=== PATIENT | female | born 1965 | race Caucasian/White ===

== ENCOUNTER 2020-08-10 07:29 | Day surgery (SDC) | payer OTHER ==
[~2020-08-10] VITALS: Ht 167.6 cm; Wt 68.0 kg
[~2020-08-10 07:29] MED LIST: ALIVE WOMENS ENERGY PO; AMOXICILLIN500 MG OR; FLEXERIL OR; LORTAB 5 OR; LORTAB5 OR; MEMORY SUPPLEMENT PO; NO CURRENT MEDS; NO HOME MEDS; PERCOCET 5/321 COMBO PO; PERCOCET 5/325M1 TAB OR; PERCOCET 5/325M1 TAB PO; PRILOSEC20 MG PO
[2020-08-10 09:10] VITALS: BP 136/76
--- NOTE | 2020-08-10 15:35 | NUR ---
PER PHYSICIAN, ADVISED PATIENT OF COLONOSCOPY FINDINGS AND RECOMMENDATIONS PER WRITTEN REPORT, PATIENT VERBALIZED UNDERSTANDING, STATED PROCEDURE WENT WELL, VOICED NO CONCERNS AT TIME OF CALL. REPORT AND NOTE FORWARDED TO PRIMARY CARE FOR CONTINUITY OF CARE AND FOLLOW UP.
== END 2020-08-10 10:02 | disposition home or self-care (01) | DRG 951 ==
LOC: ENDO 07:29 → ORM 08:45 → ENDO 09:20 → ORM 10:20 → ENDO 10:20
PROVIDERS: ATTEND Surgery
PROC: 0DJD8ZZ Inspection of Lower Intestinal Tract, Via Natural or Artificial Opening Endoscopic (ICD-10-PCS; principal; 2020-08-10)
DX: Z12.11 Encounter for screening for malignant neoplasm of colon (principal); K63.9 Disease of intestine, unspecified

== ENCOUNTER 2021-07-26 11:26 | Emergency (ER) | payer OTHER ==
[~2021-07-26] VITALS: Ht 167.6 cm; Wt 70.0 kg
[~2021-07-26 11:26] MED LIST changes: +GABAPENTIN300 M2 PO; +OMEPRAZOLE DR40 MG PO
[2021-07-26 12:48] LABS: IMMATURE GRANULOCYTES 0.2 % (0.0-5.0); MEAN CELL VOLUME 87.6 fL CALC (80.0-100.0); MEAN CORPUSCULAR HGB 29.5 pG CALC (26.0-32.0); MEAN CORPUSCULAR HGB CONC 33.6 g/dL CAL (32.0-36.0); NEUT# 7.12 thou/uL (2.00-7.15); RED BLOOD COUNT 3.87 mill/uL (4.20-5.60); RED CELL DISTRI WIDTH 13.9 % (11.5-15.5)
[2021-07-26 12:54] LABS: HEMATOCRIT 33.9 % (37.0-47.0); HEMOGLOBIN 11.4 g/dl (12.0-16.0)
[2021-07-26 13:04] LABS: ALBUMIN 4.4 g/dL (3.2-5.0); ALKALINE PHOSPHATASE 105 u/l (38-126); ANION GAP 13 (6-22 (CALC)); BUN 7 mg/dL (7-17); BUN/CREATININE RATIO 12 (12-20 (CALC)); C-REACTIVE PROTEIN 4.8 mg/dL (0-0.9); CARBON DIOXIDE 23 mmol/l (22-30); CHLORIDE 103 mmol/l (95-108); CREATININE 0.6 mg/dL (0.5-1.0); GFR FOR AFR.AMER. > 60 ML/MIN (>=60 (CALC)); GFR OTHER RACES > 60 ML/MIN (>=60 (CALC)); POTASSIUM 3.8 mmol/l (3.5-5.1); SGOT/AST 25 u/l (14-36); SODIUM 134 mmol/l (137-146)
[2021-07-26 13:09] LABS: BILIRUBIN, TOTAL 0.9 mg/dL (0.0-1.4)
[2021-07-26 13:11] LABS: PROTHROMBIN TIME 10.1 SECONDS (9.0-12.5)
[2021-07-26 13:12] LABS: D-DIMER 1.41 mg/L (0.19-0.60)
[2021-07-26 13:12] LABS: URINE BILIRUBIN - DIPSTICK NEGATIVE (NEGATIVE); URINE BLOOD DIPSTICK TRACE-INTACT (NEGATIVE); URINE COLOR YELLOW; URINE GLUCOSE - DIPSTICK NEGATIVE (NEGATIVE); URINE KETONE NEGATIVE (NEGATIVE); URINE LEUK ESTERASE NEGATIVE (NEGATIVE); URINE PROTEIN - DIPSTICK NEGATIVE (NEG-TRACE); URINE UROBILINOGEN - DIPSTICK 0.2 E.U./dL (0.2)
[2021-07-26 13:22] LABS: URINE NITRITE - DIPSTICK NEGATIVE (Negative)
[2021-07-26] MEDS ORDERED: PAXLOVID PO (15:20)
[2021-07-26 15:42] VITALS: BP 113/71
== END 2021-07-26 15:52 | disposition home or self-care (01) | DRG 179 ==
LOC: ED 11:26
PROVIDERS: Nurse Practitioner
DX: U07.1 COVID-19 (principal); R09.02 Hypoxemia
CPT/HCPCS: Q9967